=== PATIENT | male | born 1995 | race Caucasian/White ===

== ENCOUNTER 2023-02-04 14:20 | Emergency (ER) | payer MEDICAID ==
[~2023-02-04] VITALS: Ht 193 cm; Wt 70.0 kg
[2023-02-04] MEDS ORDERED: TETanus/Pertussis (Acell)/Diphther VAC/PF (Tdap-Adult) 0.5ml syringe IMVAC ONE (14:55)
[2023-02-04] MEDS ORDERED: bacitracin 15gm ointment TP ONE (14:55)
[2023-02-04] MEDS ORDERED: SULF1TAB45 PO (15:48)
[2023-02-04 16:24] VITALS: BP 144/86; PULSE 92; RESP 18; TEMP 98.4; O2SAT 99
--- NOTE | 2023-02-04 16:37 | NUR ---
agree with catherine willoughby's assessment, reviewed.
== END 2023-02-04 16:31 ==
LOC: ER 14:21
DX: S00.81XA Abrasion of other part of head, initial encounter (principal); X58.XXXA Exposure to other specified factors, initial encounter; Y93.89 Activity, other specified; Y92.89 Other specified places as the place of occurrence of the external cause; Y99.8 Other external cause status
CPT/HCPCS: 70450; 99284; J7030; A6449